=== PATIENT | female | born 1960 | race Caucasian/White ===

== ENCOUNTER 2023-04-05 12:09 | Outpatient (CLI) | payer OTHER | END 2023-04-05 12:10 | disposition home or self-care (01) | LOC: BICRAD 12:09 | PROVIDERS: ATTEND Nurse Practitioner Family | DX: M54.6 Pain in thoracic spine (principal); M47.814 Spondylosis without myelopathy or radiculopathy, thoracic region; M47.812 Spondylosis without myelopathy or radiculopathy, cervical region; M43.12 Spondylolisthesis, cervical region; M47.816 Spondylosis without myelopathy or radiculopathy, lumbar region; M51.36 Other intervertebral disc degeneration, lumbar region | CPT/HCPCS: 72072; 72100 ==

== ENCOUNTER 2023-05-09 10:01 | Outpatient (CLI) | payer OTHER | END 2023-05-09 10:02 | disposition home or self-care (01) | LOC: MRI 10:01 | PROVIDERS: ATTEND Nurse Practitioner Family | DX: M54.50 Low back pain, unspecified (principal); M51.34 Other intervertebral disc degeneration, thoracic region; M47.816 Spondylosis without myelopathy or radiculopathy, lumbar region | CPT/HCPCS: 72146; 72148 ==

== ENCOUNTER 2023-08-06 23:06 | Emergency (ER) | payer OTHER ==
[2023-08-07 00:10] LABS: SARS-CoV-2 NAA Rapid Test DETECTED (NotDetected)
[2023-08-07] MEDS ORDERED: Ketorolac Tromethamine 30 MG (1 mL) VIAL ONE ×2 (00:56→00:57)
[2023-08-07] MEDS ORDERED: Acetaminophen 500 MG TAB ONE (00:56)
[2023-08-07] MEDS ORDERED: Ondansetron ODT 4 MG TAB ONE (00:56)
== END 2023-08-07 01:42 | disposition home or self-care (01) ==
LOC: ERS 23:06
DX: U07.1 COVID-19 (principal); I10 Essential (primary) hypertension
CPT/HCPCS: 71045; 96372; J1885; Q0162

== ENCOUNTER 2023-09-15 10:56 | Emergency (ER) | payer OTHER | END 2023-09-15 13:10 | disposition home or self-care (01) | LOC: ERS 10:56 | DX: S01.511A Laceration without foreign body of lip, initial encounter (principal); I10 Essential (primary) hypertension; Z79.899 Other long term (current) drug therapy; W26.8XXA Contact with other sharp object(s), not elsewhere classified, initial encounter; Y93.E5 Activity, floor mopping and cleaning | CPT/HCPCS: 12011; 99282 ==

== ENCOUNTER 2024-04-16 12:08 | Outpatient (CLI) | payer OTHER | END 2024-04-16 12:09 | disposition home or self-care (01) | LOC: BICMAMMO 12:08 | PROVIDERS: ATTEND Nurse Practitioner Family | DX: Z12.31 Encounter for screening mammogram for malignant neoplasm of breast (principal); Z80.3 Family history of malignant neoplasm of breast | CPT/HCPCS: 77063; 77067 ==

== ENCOUNTER 2025-02-27 12:41 | Emergency (ER) | payer OTHER ==
[2025-02-27] MEDS ORDERED: Ondansetron PF 4 MG/2 ML Vial ONE (12:58)
[2025-02-27 13:19] LABS: #Basophils 0.03 10x3/uL (0.0-0.2); #Eosinophils 0.09 10x3/uL (0.0-0.7); #Monocytes 0.53 10x3/uL (0.11-0.59); #Neutrophils 4.82 10x3/uL (1.40-6.50); %Basophils 0.4 % (0.0-1.0); %Eosinophils 1.1 % (0.0-10.0); %Lymphocytes 31.8 % (21.0-51.0); %Monocytes 6.6 % (0.0-10.0); %Neutrophils 59.7 % (42.0-75.0); Hematocrit 41.2 % (36.0-47.0); Hemoglobin 14.0 g/dL (12.0-16.0); Mean Corpuscular Hemoglobin 30.6 pg (27.0-31.0); Mean Corpuscular Volume 90.0 fL (78.0-98.0); Platelet Count 287 10x3/uL (130-400); Red Blood Cell (RBC) Count 4.58 mill/uL (4.20-5.40); White Blood Cell (WBC) Count 8.07 10x3/uL (4.8-10.8)
[2025-02-27 13:35] LABS: ALT (SGPT) 14 U/L (Less than 34); AST (SGOT) 22 U/L (11-34); Albumin 4.5 g/dL (3.1-4.5); Alkaline Phosphatase 66 U/L (40-110); Anion Gap 15 mmol/L (10-20); BUN (Urea Nitrogen) 22 mg/dL (9.8-20.1); Bilirubin, Total 0.7 mg/dL (0.3-1.2); Calc. Creatinine Clearance 0 mL/min (70-130); Calcium 9.8 mg/dL (7.8-10.44); Carbon Dioxide 23 mmol/L (23-31); Chloride 106 mmol/L (98-107); Globulin 3.0 g/dL (2.4-3.5); Glucose 96 mg/dL (80-115); Lipase 23 U/L (8-78); Potassium 3.8 mmol/L (3.5-5.1); Sodium 140 mmol/L (136-145)
[2025-02-27] MEDS ORDERED: HYDROmorphone 0.5 MG/0.5 ML SYRINGE ONE (13:43)
[2025-02-27] MEDS ORDERED: Ketorolac Tromethamine 30 MG (1 mL) VIAL ONE (13:44)
[2025-02-27] MEDS ORDERED: Iopamidol-370 76% 500 ML MDV (1 ML CHARGE) ONE (15:28)
[2025-02-27 15:45] LABS: Bacteria/HPF None Seen HPF (None Seen); CAUTI Indications for Culture Pelvic or flank pain; Glucose, Urine (Dipstick) Normal (Negative); Leukocyte Negative Leu/uL (Negative); Protein, Urine (Dipstick) Negative (Neg-Trace); Specific Gravity, Urine 1.012 (1.002-1.036); WBC/HPF 0-3 HPF (0-3)
[2025-02-27 15:47] LABS: Urine Culture Reflex No No
== END 2025-02-27 15:58 | disposition home or self-care (01) ==
LOC: ERS 12:41
DX: N13.2 Hydronephrosis with renal and ureteral calculous obstruction (principal); I10 Essential (primary) hypertension; E78.00 Pure hypercholesterolemia, unspecified; Z55.6 Problems related to health literacy; Z79.899 Other long term (current) drug therapy
CPT/HCPCS: 74177; 80053; 81001; 83605; 83690; 85025; 87086; 96374; 96375; J1171; J1885; J2270; J2405; Q9967

== ENCOUNTER 2025-04-18 09:58 | Outpatient (CLI) | payer OTHER | END 2025-04-18 09:59 | disposition home or self-care (01) | LOC: BICMAMMO 09:58 | PROVIDERS: ATTEND Nurse Practitioner Family | DX: Z12.31 Encounter for screening mammogram for malignant neoplasm of breast (principal); Z80.3 Family history of malignant neoplasm of breast | CPT/HCPCS: 77063; 77067 ==

== ENCOUNTER 2025-04-18 12:06 | Outpatient (CLI) | payer OTHER | END 2025-04-18 12:07 | disposition home or self-care (01) | LOC: CT 12:06 | PROVIDERS: ATTEND Urology | DX: N20.0 Calculus of kidney (principal) | CPT/HCPCS: 72192 ==